=== PATIENT | female | born 1955 | race Caucasian/White ===

== ENCOUNTER 2016-09-28 11:28 | Emergency (ER) | payer OTHER ==
[~2016-09-28] VITALS: Ht 162.6 cm; Wt 92.7 kg
[~2016-09-28 11:28] MED LIST: ADVAIR 100/501 DISK; ADVAIR 100/501 DISK IH; ATIVAN1 MG PO; AVANDIA2 MG PO; BUSPAR10 M1; BUSPAR10 M1 PO; BUSPAR15 MG PO; CENTRAL-VITE S1 EAC2 PO; CLARITIN10 M3 PO; DEPAKOTE ER (E250 MG; DEPAKOTE ER (E500 MG PO; DEPAKOTE ER250 MG PO; DEPAKOTE ER500 MG PO; DEPAKOTE250 MG PO; DEPAKOTE500 MG PO; DITROPAN XL10 MG PO; DIVALPROEX SOD250 MG PO; ENABLEX15 MG PO; FLEXERIL10 MG PO; FOLIC ACID1 MG; FOLIC ACID1 MG PO; GABAPENTIN300 M1 PO; GABAPENTIN300 MG PO; GLIPIZIDE ER2.5 M1 PO; GLIPIZIDE ER2.5 MG PO; GLIPIZIDE5 M1 PO; GLIPIZIDE5 MG PO; GLUCOTROL XL10 MG PO; HUMALOG100 UNIT/1 SC; HYDROCODON-ACE1 EAC9 PO; Habitrol,Nicoderm CQ TD; INDERAL10 MG; INDERAL10 MG PO; LANTUS 10100 UNITS/ SC; LANTUS 3 M100 UNITS1 SC; LEVOTHROID,SY0.15 MG PO; LIBRIUM25 MG PO; LISINOPRIL20 MG PO; LITHIUM CARBON150 MG PO; LITHIUM CARBON300 M1 PO; LITHIUM CARBON300 MG PO; LITHIUM CARBON450 MG PO; LOFIBRA54 MG PO; LORATADINE10 M2 PO; LOW DOSE ASPIRI81 M1 PO; MELADOX3 MG; MELADOX3 MG PO; METAMUCIL MULT425 GM PO; METAMUCIL PACKE1 PKT PO; METHOCARBAMOL500 MG PO; MIRALAX255 GM PO; MOBIC15 MG PO; MOBIC7.5 MG PO; NABUMETONE500 MG PO; NEURONTIN300 MG; NEURONTIN300 MG PO; NICOTINE PATCH1 EAC2 TD; OXYBUTYNIN CHLO10 MG PO; PREMPRO 0.621 TABLET; PREMPRO 0.625-1 EACH PO; PRINIVIL20 MG PO; PROPOXYPHEN-AP1 EAC2 PO; RANITIDINE HCL150 M1; RANITIDINE HCL150 MG PO; SENNA S TABLET1 EACH PO; SEROQUEL XR300 MG PO; SEROQUEL300 MG PO; ST. JOSEPH ASPI81 MG PO; SYNTHROID150 MCG PO; THIAMINE HCL100 MG PO; TRAMADOL HCL50 MG; TRILIPIX135 MG; TRILIPIX135 MG PO; VENTOLIN HFA18 GM IH; VERTICALM25 MG PO; VITAMIN D50000 UNI1 PO; VYTORIN 10-201 EACH PO; VYTORIN 10/21 TABLET; VYTORIN 10/21 TABLET PO; ZANTAC150 M1 PO; ZANTAC150 MG PO; ZESTRIL,PRINIVI20 MG; ZESTRIL,PRINIVI20 MG PO; ZESTRIL20 MG PO; ZOFRAN ODT4 MG PO
[2016-09-28 11:38] VITALS: BP 130/64
[2016-09-28] MEDS ORDERED: FLEXERIL5 MG PO (12:47)
[2016-09-28] MEDS ORDERED: MOTRIN600 MG PO (12:47)
== END 2016-09-28 13:02 | disposition home or self-care (01) ==
LOC: EME 11:28
DX: M54.2 Cervicalgia (principal); R51 Headache; M54.5 Low back pain; G89.29 Other chronic pain; I10 Essential (primary) hypertension; E03.9 Hypothyroidism, unspecified; E78.5 Hyperlipidemia, unspecified; E11.9 Type 2 diabetes mellitus without complications; Z79.4 Long term (current) use of insulin; F17.200 Nicotine dependence, unspecified, uncomplicated
CPT/HCPCS: 99281; 99284

== ENCOUNTER 2017-02-27 17:31 | Emergency (ER) | payer OTHER ==
[~2017-02-27] VITALS: Ht 162.6 cm; Wt 94.7 kg
[~2017-02-27 17:31] MED LIST changes: +FLEXERIL5 MG PO; +MOTRIN600 MG PO
[2017-02-27 17:37] VITALS: BP 122/81
[2017-02-27 18:09] LABS: HEMATOCRIT 35.5 % (36.0-46.0); MCH 31.1 PG (29.0-34.0); MCHC 32.7 G/DL (30.0-36.0); MCV 95.2 FL (83-99); MEAN PLAT.VOLUME 11.7 uM^3 (9.5-12.4); PLATELET COUNT 221 K/uL (156-360); RBC DIS.WIDTH-CV 14.2 % (11.8-14.6); RBC DIS.WIDTH-SD 47.8 % (39-53); RED BLOOD COUNT 3.73 M/uL (3.80-5.20); WHITE BLOOD COUNT 7.6 K/uL (4.1-10.2)
[2017-02-27 18:21] LABS: CHLORIDE 99 mEq/L (99-109); SODIUM 135 mEq/L (136-147)
[2017-02-27 18:23] LABS: GLUCOSE 240 mg/dL (70-99)
[2017-02-27 18:24] LABS: ANION GAP 10 MEQ/L (2-14)
[2017-02-27 18:26] LABS: SERUM ETHYL ALCOHOL < 10 mg/dL
[2017-02-27 18:27] LABS: GFR ESTIMATE (CALCULATED) 35 mL/min/
[2017-02-27 18:28] LABS: UREA NITROGEN (BUN) 38 mg/dL (9-23)
[2017-02-27 21:27] LABS: AMPHETAMINE NEGATIVE (500 ng/mL); BARBITURATES NEGATIVE (200 ng/mL); BENZODIAZEPINES NEGATIVE (150 ng/mL); COCAINE NEGATIVE (150 ng/mL); INTERNAL CONTROLS VALID? YES; METHADONE NEGATIVE (200 ng/mL); METHAMPHETAMINE NEGATIVE (500 ng/mL); OPIATES (MORPHINE) NEGATIVE (100 ng/mL); OXYCODONE NEGATIVE (100 ng/mL); PHENCYCLIDINE NEGATIVE (25 ng/mL); PROPOXYPHENE NEGATIVE (300 ng/mL); THC CANNABINOIDS NEGATIVE (50 ng/mL); TRICYCLIC ANTIDEPRESSANTS NEGATIVE (300 ng/mL)
[2017-02-28] MEDS ORDERED: KEFLEX500 MG PO (14:35)
== END 2017-02-27 20:40 | disposition left against medical advice (07) ==
LOC: EME 17:31
DX: Z04.8 Encounter for examination and observation for other specified reasons (principal); Z53.21 Procedure and treatment not carried out due to patient leaving prior to being seen by health care provider
CPT/HCPCS: 80048; 85027; G0480

== ENCOUNTER 2017-02-28 12:36 | Emergency (ER) | payer OTHER ==
[~2017-02-28] VITALS: Ht 170.2 cm; Wt 95.4 kg
[2017-02-28 13:06] VITALS: BP 130/88
[2017-02-28 13:42] LABS: EOSINOPHIL COUNT 0.2 K/uL (0-0.3); HEMATOCRIT 37.7 % (36.0-46.0); IMMATURE GRANULOCYTE (%) 0.4 % (0.0-0.7); INSTRUMENT ABS NEUTROPHIL CT 4.7 K/uL; LYMPHOCYTE COUNT 1.5 K/uL (1.0-2.8); MCH 30.8 PG (29.0-34.0); MCHC 31.8 G/DL (30.0-36.0); MCV 96.7 FL (83-99); MEAN PLAT.VOLUME 11.2 uM^3 (9.5-12.4); MONOCYTE (%) 13.7 % (3-12); NEUTROPHIL COUNT 4.7 K/uL (1.8-6.4); PLATELET COUNT 205 K/uL (156-360); RBC DIS.WIDTH-CV 14.3 % (11.8-14.6); RBC DIS.WIDTH-SD 48.8 % (39-53); WHITE BLOOD COUNT 7.4 K/uL (4.1-10.2)
[2017-02-28 13:51] LABS: CHLORIDE 103 mEq/L (99-109); POTASSIUM 5.3 mEq/L (3.7-5.4); SODIUM 137 mEq/L (136-147)
[2017-02-28 13:52] LABS: GLUCOSE 241 mg/dL (70-99)
[2017-02-28 13:54] LABS: ANION GAP 8 MEQ/L (2-14)
[2017-02-28 13:55] LABS: SERUM ETHYL ALCOHOL < 10 mg/dL
[2017-02-28 13:56] LABS: GFR ESTIMATE (CALCULATED) 31 mL/min/
[2017-02-28 13:57] LABS: UREA NITROGEN (BUN) 44 mg/dL (9-23)
[2017-02-28] MEDS ORDERED: KEFLEX500 MG PO (14:35)
== END 2017-02-28 14:59 | disposition home or self-care (01) ==
LOC: EME 12:36
PROVIDERS: Emergency Medicine
DX: F32.9 Major depressive disorder, single episode, unspecified (principal); L03.115 Cellulitis of right lower limb; F25.1 Schizoaffective disorder, depressive type; F10.10 Alcohol abuse, uncomplicated; F17.200 Nicotine dependence, unspecified, uncomplicated; E11.9 Type 2 diabetes mellitus without complications; E78.5 Hyperlipidemia, unspecified; I10 Essential (primary) hypertension; J44.9 Chronic obstructive pulmonary disease, unspecified; K21.9 Gastro-esophageal reflux disease without esophagitis; Z79.4 Long term (current) use of insulin
CPT/HCPCS: 80048; 81003; 85025; 90839; 99281; 99283; G0480

== ENCOUNTER 2017-03-19 18:56 | Emergency (ER) | payer OTHER ==
[~2017-03-19] VITALS: Ht 167.6 cm; Wt 90.3 kg
[~2017-03-19 18:56] MED LIST changes: +KEFLEX500 MG PO
[2017-03-19 20:17] LABS: ADD MIUA? YES; BILIRUBIN NEGATIVE; BLOOD NEGATIVE; COLOR COLORLESS ((YELLOW)); GLUCOSE (STRIP) >=500; KETONES NEGATIVE; LEUKOCYTES MODERATE; NITRITE NEGATIVE; PROTEIN (STRIP) NEGATIVE; SPECIFIC GRAVITY 1.006 (1.000-1.030); UROBILINOGEN 0.2 MG/DL (0.2-1.0)
[2017-03-19 20:24] LABS: AMPHETAMINE NEGATIVE (500 ng/mL); BARBITURATES NEGATIVE (200 ng/mL); BENZODIAZEPINES NEGATIVE (150 ng/mL); COCAINE NEGATIVE (150 ng/mL); INTERNAL CONTROLS VALID? YES; METHADONE NEGATIVE (200 ng/mL); METHAMPHETAMINE NEGATIVE (500 ng/mL); OPIATES (MORPHINE) NEGATIVE (100 ng/mL); OXYCODONE NEGATIVE (100 ng/mL); PHENCYCLIDINE NEGATIVE (25 ng/mL); PROPOXYPHENE NEGATIVE (300 ng/mL); THC CANNABINOIDS NEGATIVE (50 ng/mL); TRICYCLIC ANTIDEPRESSANTS PRESUMPTIVE POSITIVE (300 ng/mL)
[2017-03-19 20:30] LABS: HEMATOCRIT 32.5 % (36.0-46.0); MCH 31.3 PG (29.0-34.0); MCHC 32.6 G/DL (30.0-36.0); MCV 95.9 FL (83-99); MEAN PLAT.VOLUME 11.8 uM^3 (9.5-12.4); PLATELET COUNT 179 K/uL (156-360); RBC DIS.WIDTH-CV 14.2 % (11.8-14.6); RBC DIS.WIDTH-SD 49.2 % (39-53); RED BLOOD COUNT 3.39 M/uL (3.80-5.20)
[2017-03-19 20:31] LABS: BACTERIA RARE /HPF; EPITHELIAL CELLS RARE /HPF; MUCUS TRACE /LPF; RED BLOOD CELLS 0-5 /HPF (0-5); WHITE BLOOD CELLS CLUMP RARE /HPF (0-5)
[2017-03-19 20:49] LABS: CHLORIDE 102 mEq/L (99-109); POTASSIUM 4.2 mEq/L (3.7-5.4); SODIUM 137 mEq/L (136-147)
[2017-03-19 20:52] LABS: GLUCOSE 383 mg/dL (70-99)
[2017-03-19 20:53] LABS: ANION GAP 11 MEQ/L (2-14); TOTAL BILIRUBIN 0.3 mg/dL (0.0-1.0)
[2017-03-19 20:54] LABS: SERUM ETHYL ALCOHOL 113 mg/dL
[2017-03-19 20:55] LABS: ALKALINE PHOSPHATASE 68 IU/L (3-129); GFR ESTIMATE (CALCULATED) 38 mL/min/
[2017-03-19 20:56] LABS: UREA NITROGEN (BUN) 24 mg/dL (9-23)
[2017-03-19 21:50] VITALS: BP 132/73
== END 2017-03-19 22:15 | disposition home or self-care (01) ==
LOC: EME → EDBD 18:56 → EME 22:15
PROVIDERS: Emergency Medicine
DX: F10.129 Alcohol abuse with intoxication, unspecified (principal); F25.1 Schizoaffective disorder, depressive type; Y90.5 Blood alcohol level of 100-119 mg/100 ml; E11.9 Type 2 diabetes mellitus without complications; E78.5 Hyperlipidemia, unspecified; F32.9 Major depressive disorder, single episode, unspecified; I10 Essential (primary) hypertension; F60.3 Borderline personality disorder; K21.9 Gastro-esophageal reflux disease without esophagitis; F17.200 Nicotine dependence, unspecified, uncomplicated; Z79.4 Long term (current) use of insulin
CPT/HCPCS: 80053; 81003; 85027; 90839; 99281; 99284; G0480

== ENCOUNTER 2017-04-09 11:04 | Emergency (ER) | payer OTHER ==
[~2017-04-09] VITALS: Ht 162.6 cm; Wt 91.5 kg
[2017-04-09] MEDS ORDERED: ANTIVERT25 MG PO (12:36)
[2017-04-09 12:53] VITALS: BP 116/61
== END 2017-04-09 12:54 | disposition home or self-care (01) ==
LOC: EME 11:04
DX: H81.399 Other peripheral vertigo, unspecified ear (principal); E11.65 Type 2 diabetes mellitus with hyperglycemia; Z79.4 Long term (current) use of insulin; E78.5 Hyperlipidemia, unspecified; K21.9 Gastro-esophageal reflux disease without esophagitis; J44.9 Chronic obstructive pulmonary disease, unspecified; I10 Essential (primary) hypertension; F32.9 Major depressive disorder, single episode, unspecified; E03.9 Hypothyroidism, unspecified; F60.3 Borderline personality disorder; F17.200 Nicotine dependence, unspecified, uncomplicated; F10.10 Alcohol abuse, uncomplicated
CPT/HCPCS: 99281; 99283

== ENCOUNTER 2017-05-27 16:46 | Emergency (ER) | payer OTHER ==
[~2017-05-27] VITALS: Ht 170.2 cm; Wt 95.6 kg
[~2017-05-27 16:46] MED LIST changes: +ANTIVERT25 MG PO
[2017-05-27] MEDS ORDERED: INDOCIN25 MG PO (18:22)
[2017-05-27] MEDS ORDERED: FLEXERIL5 MG PO (18:22)
[2017-05-27] MEDS ORDERED: LIDODERM 5% P1 PATCH TD (18:22)
[2017-05-27 18:37] VITALS: BP 135/80
== END 2017-05-27 18:38 | disposition home or self-care (01) ==
LOC: EME 16:46 → RME 16:46
DX: M50.30 Other cervical disc degeneration, unspecified cervical region (principal); M51.34 Other intervertebral disc degeneration, thoracic region; M62.838 Other muscle spasm; I10 Essential (primary) hypertension; E11.9 Type 2 diabetes mellitus without complications; Z79.4 Long term (current) use of insulin; F17.200 Nicotine dependence, unspecified, uncomplicated
CPT/HCPCS: 99281; 99282; J1885

== ENCOUNTER 2017-08-04 13:16 | Emergency (ER) | payer OTHER ==
[~2017-08-04] VITALS: Ht 162.6 cm; Wt 94.7 kg
[~2017-08-04 13:16] MED LIST changes: +INDOCIN25 MG PO; +LIDODERM 5% P1 PATCH TD
[2017-08-04 14:27] LABS: HEMATOCRIT 33.9 % (36.0-46.0); MCH 30.9 PG (29.0-34.0); MCHC 31.6 G/DL (30.0-36.0); MEAN PLAT.VOLUME 11.7 uM^3 (9.5-12.4); PLATELET COUNT 218 K/uL (156-360); RBC DIS.WIDTH-CV 13.5 % (11.8-14.6); RBC DIS.WIDTH-SD 49.4 % (39-53); RED BLOOD COUNT 3.46 M/uL (3.80-5.20); WHITE BLOOD COUNT 8.4 K/uL (4.1-10.2)
[2017-08-04 14:30] LABS: ADD MIUA? YES; BILIRUBIN NEGATIVE; BLOOD NEGATIVE; COLOR YELLOW ((YELLOW)); GLUCOSE (STRIP) 150; KETONES NEGATIVE; LEUKOCYTES TRACE; NITRITE NEGATIVE; PROTEIN (STRIP) NEGATIVE; SPECIFIC GRAVITY 1.017 (1.000-1.030); UROBILINOGEN 0.2 MG/DL (0.2-1.0)
[2017-08-04 14:34] LABS: CHLORIDE 108 mEq/L (99-109); POTASSIUM 5.1 mEq/L (3.7-5.4); SODIUM 138 mEq/L (136-147)
[2017-08-04 14:34] LABS: BACTERIA NONE SEEN /HPF; EPITHELIAL CELLS NONE SEEN /HPF; HYALINE CASTS 0-5 /LPF; MUCUS TRACE /LPF; RED BLOOD CELLS 0-5 /HPF (0-5); UCUL ADDED? NO; WHITE BLOOD CELLS 0-5 /HPF (0-5)
[2017-08-04 14:37] LABS: GLUCOSE 268 mg/dL (70-99)
[2017-08-04 14:38] LABS: ANION GAP 7 MEQ/L (2-14)
[2017-08-04 14:39] LABS: TOTAL BILIRUBIN 0.3 mg/dL (0.0-1.0)
[2017-08-04 14:40] LABS: ALKALINE PHOSPHATASE 64 IU/L (3-129); GFR ESTIMATE (CALCULATED) 35 mL/min/
[2017-08-04 14:41] LABS: UREA NITROGEN (BUN) 36 mg/dL (9-23)
[2017-08-04 14:45] LABS: LIPASE 26 U/L (1.0-51.0)
[2017-08-04] MEDS ORDERED: ZOFRAN ODT4 MG PO (15:14)
[2017-08-04] MEDS ORDERED: COLACE100 MG PO (15:14)
[2017-08-04 15:50] VITALS: BP 136/60
== END 2017-08-04 15:51 | disposition home or self-care (01) ==
LOC: EME 13:16
DX: R10.9 Unspecified abdominal pain (principal); K59.00 Constipation, unspecified; D64.9 Anemia, unspecified; E11.65 Type 2 diabetes mellitus with hyperglycemia; K21.9 Gastro-esophageal reflux disease without esophagitis; J44.9 Chronic obstructive pulmonary disease, unspecified; I10 Essential (primary) hypertension; E78.5 Hyperlipidemia, unspecified; E03.9 Hypothyroidism, unspecified; F32.9 Major depressive disorder, single episode, unspecified; F31.9 Bipolar disorder, unspecified; F17.210 Nicotine dependence, cigarettes, uncomplicated; Z79.4 Long term (current) use of insulin; Z86.73 Personal history of transient ischemic attack (TIA), and cerebral infarction without residual deficits; Z88.8 Allergy status to other drugs, medicaments and biological substances
CPT/HCPCS: 74020; 80053; 81003; 83690; 85027; 99281; 99284

== ENCOUNTER 2017-09-11 21:44 | Emergency (ER) | payer OTHER ==
[~2017-09-11] VITALS: Ht 167.6 cm; Wt 96.6 kg
[~2017-09-11 21:44] MED LIST changes: +COLACE100 MG PO
[2017-09-11 23:06] LABS: HEMOGLOBIN 10.5 G/DL (11.9-15.5); MCH 31.9 PG (29.0-34.0); MCHC 32.8 G/DL (30.0-36.0); MCV 97.3 FL (83-99); PLATELET COUNT 184 K/uL (156-360); RBC DIS.WIDTH-CV 13.8 % (11.8-14.6); RBC DIS.WIDTH-SD 49.4 % (39-53); RED BLOOD COUNT 3.29 M/uL (3.80-5.20); WHITE BLOOD COUNT 8.9 K/uL (4.1-10.2)
[2017-09-11 23:10] LABS: APPEARANCE CLEAR ((CLEAR)); BILIRUBIN NEGATIVE; BLOOD NEGATIVE; COLOR YELLOW ((YELLOW)); GLUCOSE (STRIP) NEGATIVE; KETONES NEGATIVE; LEUKOCYTES MODERATE; NITRITE NEGATIVE; PROTEIN (STRIP) NEGATIVE; SPECIFIC GRAVITY 1.013 (1.000-1.030)
[2017-09-11 23:12] LABS: ALBUMIN 3.8 g/dL (3.2-4.8); CHLORIDE 103 mEq/L (99-109); POTASSIUM 5.7 mEq/L (3.7-5.4); SODIUM 139 mEq/L (136-147)
[2017-09-11 23:14] LABS: GLUCOSE 126 mg/dL (70-99); TOTAL PROTEIN 6.7 g/dL (6.4-8.3)
[2017-09-11 23:14] LABS: BACTERIA RARE /HPF; EPITHELIAL CELLS RARE /HPF; MUCUS NONE SEEN /LPF; RED BLOOD CELLS 0-5 /HPF (0-5); UCUL ADDED? YES; WHITE BLOOD CELLS 30-40 /HPF (0-5)
[2017-09-11 23:16] LABS: TOTAL BILIRUBIN 0.2 mg/dL (0.0-1.0)
[2017-09-11 23:18] LABS: ALKALINE PHOSPHATASE 60 IU/L (3-129); CREATININE 1.4 mg/dL (0.6-1.3); GFR ESTIMATE (CALCULATED) 41 mL/min/
[2017-09-11 23:19] LABS: UREA NITROGEN (BUN) 31 mg/dL (9-23)
[2017-09-11 23:20] LABS: AST (GOT) 12 IU/L (2-34)
[2017-09-11 23:21] LABS: ALT (GPT) 10 IU/L (3-49); LIPASE 32 U/L (1.0-51.0)
[2017-09-12] MEDS ORDERED: BACTRIM,SEPT1 TABLET PO (01:27)
[2017-09-12] MEDS ORDERED: DULCOLAX5 MG PO (01:27)
[2017-09-12 01:40] VITALS: BP 148/75
== END 2017-09-12 01:41 | disposition home or self-care (01) ==
LOC: EME 21:44
PROVIDERS: Emergency Medicine
DX: N30.00 Acute cystitis without hematuria (principal); R10.84 Generalized abdominal pain; K59.09 Other constipation; I12.9 Hypertensive chronic kidney disease with stage 1 through stage 4 chronic kidney disease, or unspecified chronic kidney disease; E11.22 Type 2 diabetes mellitus with diabetic chronic kidney disease; N18.9 Chronic kidney disease, unspecified; D64.9 Anemia, unspecified; R20.0 Anesthesia of skin; E03.9 Hypothyroidism, unspecified; Z79.4 Long term (current) use of insulin; F17.200 Nicotine dependence, unspecified, uncomplicated
CPT/HCPCS: 74176; 80053; 81003; 83605; 83690; 85027; 87086; 99281; 99285; J2405; J7030; S0028

== ENCOUNTER 2017-09-13 09:53 | Emergency (ER) | payer OTHER ==
[~2017-09-13] VITALS: Ht 167.6 cm; Wt 96.1 kg
[~2017-09-13 09:53] MED LIST changes: +BACTRIM,SEPT1 TABLET PO; +DULCOLAX5 MG PO
[2017-09-13 10:55] LABS: HEMATOCRIT 35.8 % (36.0-46.0); HEMOGLOBIN 11.4 G/DL (11.9-15.5); MCH 31.7 PG (29.0-34.0); MCHC 31.8 G/DL (30.0-36.0); MCV 99.4 FL (83-99); PLATELET COUNT 235 K/uL (156-360); RBC DIS.WIDTH-CV 13.8 % (11.8-14.6); RBC DIS.WIDTH-SD 50.8 % (39-53); WHITE BLOOD COUNT 9.8 K/uL (4.1-10.2)
[2017-09-13 11:04] LABS: ALBUMIN 4.3 g/dL (3.2-4.8); CHLORIDE 104 mEq/L (99-109); POTASSIUM 5.8 mEq/L (3.7-5.4); SODIUM 136 mEq/L (136-147)
[2017-09-13 11:07] LABS: TOTAL PROTEIN 7.7 g/dL (6.4-8.3)
[2017-09-13 11:10] LABS: ALKALINE PHOSPHATASE 63 IU/L (3-129); CREATININE 1.5 mg/dL (0.6-1.3); GFR ESTIMATE (CALCULATED) 38 mL/min/; GLUCOSE 68 mg/dL (70-99); TOTAL BILIRUBIN 0.3 mg/dL (0.0-1.0)
[2017-09-13 11:11] LABS: UREA NITROGEN (BUN) 25 mg/dL (9-23)
[2017-09-13 11:12] LABS: AST (GOT) 20 IU/L (2-34)
[2017-09-13 11:13] LABS: ALT (GPT) 13 IU/L (3-49)
[2017-09-13 11:57] LABS: APPEARANCE CLEAR ((CLEAR)); BILIRUBIN NEGATIVE; BLOOD NEGATIVE; COLOR YELLOW ((YELLOW)); GLUCOSE (STRIP) NEGATIVE; KETONES NEGATIVE; LEUKOCYTES TRACE; NITRITE NEGATIVE; PROTEIN (STRIP) NEGATIVE; SPECIFIC GRAVITY 1.012 (1.000-1.030); UROBILINOGEN 0.2 MG/DL (0.2-1.0)
[2017-09-13 12:02] LABS: BACTERIA RARE /HPF; EPITHELIAL CELLS RARE /HPF; HYALINE CASTS 0-5 /LPF; MUCUS NONE SEEN /LPF; RED BLOOD CELLS 0-5 /HPF (0-5); UCUL ADDED? NO; WHITE BLOOD CELLS 0-5 /HPF (0-5)
[2017-09-13 12:55] LABS: LIPASE 23 U/L (1.0-51.0)
[2017-09-13 12:59] LABS: TROP-I INTERPRETATION NEGATIVE; TROPONIN-I < 0.01 ng/mL (0.0-0.30)
[2017-09-13 15:29] VITALS: BP 134/76
== END 2017-09-13 15:30 | disposition home or self-care (01) ==
LOC: EME 09:53
DX: K59.00 Constipation, unspecified (principal); J44.9 Chronic obstructive pulmonary disease, unspecified; E11.9 Type 2 diabetes mellitus without complications; Z79.4 Long term (current) use of insulin; E78.5 Hyperlipidemia, unspecified; E03.9 Hypothyroidism, unspecified; I10 Essential (primary) hypertension; F17.200 Nicotine dependence, unspecified, uncomplicated; K21.9 Gastro-esophageal reflux disease without esophagitis; F32.9 Major depressive disorder, single episode, unspecified
CPT/HCPCS: 74000; 80053; 81003; 83690; 84484; 85027; 93005; 99281; 99284

== ENCOUNTER 2018-01-15 18:32 | Emergency (ER) | payer OTHER ==
[~2018-01-15] VITALS: Ht 170.2 cm; Wt 92.5 kg
[2018-01-15 19:19] LABS: HEMATOCRIT 35.4 % (36.0-46.0); HEMOGLOBIN 11.6 G/DL (11.9-15.5); MCH 31.9 PG (29.0-34.0); MCHC 32.8 G/DL (30.0-36.0); MCV 97.3 FL (83-99); RBC DIS.WIDTH-CV 13.9 % (11.8-14.6); RBC DIS.WIDTH-SD 49.7 % (39-53); RED BLOOD COUNT 3.64 M/uL (3.80-5.20); WHITE BLOOD COUNT 7.2 K/uL (4.1-10.2)
[2018-01-15 19:26] LABS: CHLORIDE 107 mEq/L (99-109); POTASSIUM 5.1 mEq/L (3.7-5.4); SODIUM 143 mEq/L (136-147)
[2018-01-15 19:28] LABS: GLUCOSE 150 mg/dL (70-99)
[2018-01-15 19:32] LABS: CREATININE 1.6 mg/dL (0.6-1.3); GFR ESTIMATE (CALCULATED) 35 mL/min/; UREA NITROGEN (BUN) 35 mg/dL (9-23)
[2018-01-15 20:34] LABS: HEMATOLOGY COMMENT 1 SN; PLAT.SUFFICIENCY ADEQUATE; PLATELET COUNT 155 K/uL (156-360)
[2018-01-15 20:35] LABS: TROP-I INTERPRETATION NEGATIVE; TROPONIN-I < 0.01 ng/mL (0.0-0.30)
[2018-01-15 21:38] VITALS: BP 104/50
[2018-01-15 21:52] LABS: APPEARANCE CLEAR ((CLEAR)); BILIRUBIN NEGATIVE; BLOOD NEGATIVE; COLOR YELLOW ((YELLOW)); GLUCOSE (STRIP) NEGATIVE; KETONES NEGATIVE; LEUKOCYTES MODERATE; NITRITE NEGATIVE; PROTEIN (STRIP) NEGATIVE; SPECIFIC GRAVITY 1.013 (1.000-1.030)
[2018-01-15 22:00] LABS: BACTERIA NONE SEEN /HPF; EPITHELIAL CELLS RARE /HPF; MUCUS TRACE /LPF; RED BLOOD CELLS 0-5 /HPF (0-5)
== END 2018-01-15 21:40 | disposition left against medical advice (07) ==
LOC: EME 18:32
PROVIDERS: Physician Assistant
DX: R47.1 Dysarthria and anarthria (principal); R41.0 Disorientation, unspecified; R51 Headache; M54.2 Cervicalgia; I10 Essential (primary) hypertension; E03.9 Hypothyroidism, unspecified; E11.9 Type 2 diabetes mellitus without complications; Z79.4 Long term (current) use of insulin; Z86.73 Personal history of transient ischemic attack (TIA), and cerebral infarction without residual deficits; Z91.81 History of falling; F17.200 Nicotine dependence, unspecified, uncomplicated
CPT/HCPCS: 70450; 71046; 80048; 80178; 81003; 84484; 85027; 93005; 99281; 99285

== ENCOUNTER 2018-01-23 12:05 | Emergency (ER) | payer OTHER ==
[~2018-01-23] VITALS: Ht 170.2 cm; Wt 91.8 kg
[2018-01-23 12:39] LABS: HEMATOCRIT 32.8 % (36.0-46.0); HEMOGLOBIN 10.8 G/DL (11.9-15.5); MCH 31.7 PG (29.0-34.0); MCHC 32.9 G/DL (30.0-36.0); MCV 96.2 FL (83-99); RBC DIS.WIDTH-CV 13.6 % (11.8-14.6); RBC DIS.WIDTH-SD 48.6 % (39-53); RED BLOOD COUNT 3.41 M/uL (3.80-5.20)
[2018-01-23 12:49] LABS: CHLORIDE 103 mEq/L (99-109); POTASSIUM 5.2 mEq/L (3.7-5.4); SODIUM 137 mEq/L (136-147)
[2018-01-23 12:52] LABS: GLUCOSE 162 mg/dL (70-99); TOTAL PROTEIN 6.4 g/dL (6.4-8.3)
[2018-01-23 12:54] LABS: TOTAL BILIRUBIN 0.2 mg/dL (0.0-1.0)
[2018-01-23 12:55] LABS: ALKALINE PHOSPHATASE 56 IU/L (3-129); CREATININE 1.4 mg/dL (0.6-1.3); GFR ESTIMATE (CALCULATED) 41 mL/min/
[2018-01-23 12:56] LABS: UREA NITROGEN (BUN) 28 mg/dL (9-23)
[2018-01-23 12:57] LABS: AST (GOT) 13 IU/L (2-34)
[2018-01-23 12:58] LABS: ALT (GPT) 12 IU/L (3-49)
[2018-01-23 12:59] LABS: LIPASE 36 U/L (1.0-51.0)
[2018-01-23 13:13] LABS: PLAT.SUFFICIENCY ADEQUATE; PLATELET COUNT 173 K/uL (156-360)
[2018-01-23 14:18] LABS: APPEARANCE CLEAR ((CLEAR)); BILIRUBIN NEGATIVE; BLOOD NEGATIVE; COLOR STRAW ((YELLOW)); GLUCOSE (STRIP) NEGATIVE; KETONES NEGATIVE; LEUKOCYTES LARGE; NITRITE NEGATIVE; PROTEIN (STRIP) NEGATIVE; SPECIFIC GRAVITY 1.009 (1.000-1.030); UROBILINOGEN 0.2 MG/DL (0.2-1.0)
[2018-01-23 14:31] LABS: BACTERIA NONE SEEN /HPF; EPITHELIAL CELLS RARE /HPF; MUCUS NONE SEEN /LPF; RED BLOOD CELLS 0-5 /HPF (0-5); UCUL ADDED? YES; WHITE BLOOD CELLS 30-40 /HPF (0-5)
[2018-01-23] MEDS ORDERED: CEFTIN250 MG PO (15:00)
[2018-01-23 15:50] VITALS: BP 138/73
== END 2018-01-23 15:52 | disposition home or self-care (01) ==
LOC: EME 12:05
PROVIDERS: Emergency Medicine
DX: N39.0 Urinary tract infection, site not specified (principal); K57.30 Diverticulosis of large intestine without perforation or abscess without bleeding; K59.00 Constipation, unspecified; E11.9 Type 2 diabetes mellitus without complications; K21.9 Gastro-esophageal reflux disease without esophagitis; J44.9 Chronic obstructive pulmonary disease, unspecified; I10 Essential (primary) hypertension; E78.5 Hyperlipidemia, unspecified; E03.9 Hypothyroidism, unspecified; F60.3 Borderline personality disorder; F32.9 Major depressive disorder, single episode, unspecified; F31.9 Bipolar disorder, unspecified; F17.200 Nicotine dependence, unspecified, uncomplicated; Z79.4 Long term (current) use of insulin; Z88.8 Allergy status to other drugs, medicaments and biological substances
CPT/HCPCS: 74176; 80053; 81003; 83690; 85027; 87086; 93005; 99281; 99285; J2405; J7030

== ENCOUNTER 2018-02-19 16:55 | Emergency (ER) | payer OTHER ==
[~2018-02-19] VITALS: Ht 162.6 cm; Wt 91.8 kg
[~2018-02-19 16:55] MED LIST changes: +CEFTIN250 MG PO
[2018-02-19 17:21] VITALS: BP 143/92
== END 2018-02-19 17:44 | disposition left against medical advice (07) ==
LOC: EME 16:55
DX: T78.40XA Allergy, unspecified, initial encounter (principal); Z53.21 Procedure and treatment not carried out due to patient leaving prior to being seen by health care provider

== ENCOUNTER 2018-03-07 14:26 | Emergency (ER) | payer OTHER ==
[~2018-03-07] VITALS: Ht 170.2 cm; Wt 88.2 kg
[2018-03-07 15:02] LABS: BASOPHIL (%) 0.6 % (0-1); BASOPHIL COUNT 0.1 K/uL (0-0.1); EOSINOPHIL COUNT 0.2 K/uL (0-0.3); HEMATOCRIT 35.3 % (36.0-46.0); HEMOGLOBIN 11.6 G/DL (11.9-15.5); IMMATURE GRANULOCYTE (%) 0.8 % (0.0-0.7); LYMPHOCYTE (%) 21.6 % (15-42); LYMPHOCYTE COUNT 1.7 K/uL (1.0-2.8); MCH 31.7 PG (29.0-34.0); MCHC 32.9 G/DL (30.0-36.0); MCV 96.4 FL (83-99); MONOCYTE (%) 10.4 % (3-12); MONOCYTE COUNT 0.8 K/uL (0-0.8); NEUTROPHIL (%) 64.6 % (45-76); NEUTROPHIL COUNT 5.1 K/uL (1.8-6.4); PLATELET COUNT 172 K/uL (156-360); RBC DIS.WIDTH-CV 13.5 % (11.8-14.6); RBC DIS.WIDTH-SD 47.7 % (39-53); RED BLOOD COUNT 3.66 M/uL (3.80-5.20); WHITE BLOOD COUNT 7.9 K/uL (4.1-10.2)
[2018-03-07 15:11] LABS: CHLORIDE 105 mEq/L (99-109); POTASSIUM 5.3 mEq/L (3.7-5.4); SODIUM 137 mEq/L (136-147)
[2018-03-07 15:13] LABS: GLUCOSE 154 mg/dL (70-99)
[2018-03-07 15:16] LABS: SERUM ETHYL ALCOHOL < 10 mg/dL
[2018-03-07 15:17] LABS: CREATININE 1.3 mg/dL (0.6-1.3); GFR ESTIMATE (CALCULATED) 44 mL/min/
[2018-03-07 15:18] LABS: UREA NITROGEN (BUN) 27 mg/dL (9-23)
[2018-03-07 16:09] VITALS: BP 138/70
== END 2018-03-07 16:27 | disposition home or self-care (01) ==
LOC: EME 14:26
PROVIDERS: Emergency Medicine
DX: F41.9 Anxiety disorder, unspecified (principal); E11.9 Type 2 diabetes mellitus without complications; Z76.0 Encounter for issue of repeat prescription; Z79.4 Long term (current) use of insulin; F25.1 Schizoaffective disorder, depressive type; Z72.0 Tobacco use
CPT/HCPCS: 80048; 85025; 90839; 99281; 99283; G0480

== ENCOUNTER → 2018-03-25 | Day surgery (SDC) | payer OTHER ==
[~2018-03-25] VITALS: Ht 171.4 cm; Wt 88.0 kg
[~2018-03-25] MED LIST changes: +BASAGLAR K100 UNIT/1 SC; +VITAMIN D2000 UNI1 PO; +ZOCOR40 MG PO
== END | disposition home or self-care (01) ==
LOC: PAIN 10:33 → SDC 11:00 → PAIN 11:00
PROVIDERS: Anesthesiology Pain Medicine
DX: M47.812 Spondylosis without myelopathy or radiculopathy, cervical region (principal); M46.92 Unspecified inflammatory spondylopathy, cervical region; M79.1 Myalgia; F17.200 Nicotine dependence, unspecified, uncomplicated; Z88.8 Allergy status to other drugs, medicaments and biological substances
CPT/HCPCS: 82948; J1030; J2250; S0020

== ENCOUNTER 2018-04-12 04:10 | Emergency (ER) | payer OTHER ==
[~2018-04-12] VITALS: Ht 170.2 cm; Wt 88.4 kg
[~2018-04-12 04:10] MED LIST changes: +NEURONTIN100 MG PO; -NEURONTIN300 MG PO; +SEROQUEL200 MG PO
[2018-04-12] MEDS ORDERED: PERCOCET 5/31 TABLET PO (05:34)
[2018-04-12 06:33] VITALS: BP 141/76
== END 2018-04-12 06:36 | disposition home or self-care (01) ==
LOC: EME → EDBD 04:10 → EME 06:36
DX: S82.002A Unspecified fracture of left patella, initial encounter for closed fracture (principal); W01.0XXA Fall on same level from slipping, tripping and stumbling without subsequent striking against object, initial encounter; Y93.89 Activity, other specified; Y92.002 Bathroom of unspecified non-institutional (private) residence as the place of occurrence of the external cause; I10 Essential (primary) hypertension; K21.9 Gastro-esophageal reflux disease without esophagitis; E78.5 Hyperlipidemia, unspecified; E11.9 Type 2 diabetes mellitus without complications; J44.9 Chronic obstructive pulmonary disease, unspecified; E03.9 Hypothyroidism, unspecified; F32.9 Major depressive disorder, single episode, unspecified; F31.9 Bipolar disorder, unspecified; F17.200 Nicotine dependence, unspecified, uncomplicated; Z79.84 Long term (current) use of oral hypoglycemic drugs; Z88.8 Allergy status to other drugs, medicaments and biological substances
CPT/HCPCS: 73564; 99281; 99283

== ENCOUNTER 2018-04-14 10:27 | Inpatient (IN) | payer OTHER ==
[~2018-04-14] VITALS: Ht 170.2 cm; Wt 89.8 kg
[~2018-04-14 10:27] MED LIST changes: +PERCOCET 5/31 TABLET PO
[2018-04-14 10:45] LABS: HEMATOCRIT 34.2 % (36.0-46.0); HEMOGLOBIN 11.5 G/DL (11.9-15.5); MCH 32.4 PG (29.0-34.0); MCHC 33.6 G/DL (30.0-36.0); MCV 96.3 FL (83-99); PLATELET COUNT 181 K/uL (156-360); RBC DIS.WIDTH-CV 12.8 % (11.8-14.6); RBC DIS.WIDTH-SD 45.9 % (39-53); RED BLOOD COUNT 3.55 M/uL (3.80-5.20); WHITE BLOOD COUNT 17.1 K/uL (4.1-10.2)
[2018-04-14 10:53] LABS: CHLORIDE 103 mEq/L (99-109); SODIUM 138 mEq/L (136-147)
[2018-04-14 10:55] LABS: GLUCOSE 106 mg/dL (70-99)
[2018-04-14 10:59] LABS: CREATININE 2.5 mg/dL (0.6-1.3); GFR ESTIMATE (CALCULATED) 21 mL/min/
[2018-04-14 11:00] LABS: UREA NITROGEN (BUN) 55 mg/dL (9-23)
[2018-04-14 11:05] LABS: TROP-I INTERPRETATION NEGATIVE; TROPONIN-I < 0.01 ng/mL (0.0-0.30)
[2018-04-14 11:25] LABS: APPEARANCE TURBID ((CLEAR)); BILIRUBIN NEGATIVE; BLOOD MODERATE; COLOR AMBER ((YELLOW)); GLUCOSE (STRIP) NEGATIVE; KETONES NEGATIVE; LEUKOCYTES LARGE; NITRITE NEGATIVE; PROTEIN (STRIP) 100; SPECIFIC GRAVITY 1.014 (1.000-1.030); UROBILINOGEN 0.2 MG/DL (0.2-1.0)
[2018-04-14 11:51] LABS: UCUL ADDED? YES; WHITE BLOOD CELLS TNTC /HPF (0-5)
[2018-04-14] MEDS ORDERED: MELOXICAM15 MG PO (14:40)
[2018-04-14] MEDS ORDERED: MIRALAX119 GM PO (14:40)
[2018-04-14] MEDS ORDERED: LO-DOSE ASPIRIN81 M1 PO (14:41)
[2018-04-14 15:02] VITALS: BP 124/81
[2018-04-14] MEDS ORDERED: QUETIAPINE FUM300 MG PO (15:02)
[2018-04-14] MEDS ORDERED: HYDROCODON-ACE1 EAC7 PO (15:04)
[2018-04-14] MEDS ORDERED: SANCTURA20 MG PO (15:04)
[2018-04-14 19:55] VITALS: BP 134/63
[2018-04-14 21:02] LABS: HEMATOCRIT 35.3 % (36.0-46.0); HEMOGLOBIN 11.6 G/DL (11.9-15.5); MCH 32.3 PG (29.0-34.0); MCHC 32.9 G/DL (30.0-36.0); MCV 98.3 FL (83-99); PLATELET COUNT 185 K/uL (156-360); RBC DIS.WIDTH-CV 12.8 % (11.8-14.6); RBC DIS.WIDTH-SD 46.3 % (39-53); RED BLOOD COUNT 3.59 M/uL (3.80-5.20); WHITE BLOOD COUNT 15.5 K/uL (4.1-10.2)
[2018-04-14 21:21] LABS: CREATINE KINASE 569 IU/L (1-294); TOTAL CK 569 IU/L (1-294)
[2018-04-14 21:28] LABS: CKMB RELATIVE INDEX 1.2 (0.0-3.9)
[2018-04-14 22:13] LABS: ALBUMIN 3.5 G/DL (3.2-4.8); ALKALINE PHOSPHATASE 62 IU/L (3-129); ALT (GPT) 11 IU/L (3-49); AST (GOT) 23 IU/L (2-34); CHLORIDE 106 MEQ/L (99-109); CREATININE 1.8 MG/DL (0.6-1.3); GFR ESTIMATE (CALCULATED) 31 mL/min/; GLUCOSE 122 mg/dL (70-99); POTASSIUM 5.4 MEQ/L (3.7-5.4); SODIUM 138 MEQ/L (136-147); TOTAL BILIRUBIN 0.3 MG/DL (0.0-1.0); TOTAL PROTEIN 6.8 G/DL (6.4-8.3); UREA NITROGEN (BUN) 48 mg/dL (9-23)
[2018-04-15 00:08] VITALS: BP 136/65
[2018-04-15 06:38] LABS: ALBUMIN 2.9 G/DL (3.2-4.8); CHLORIDE 108 MEQ/L (99-109); CREATININE 1.7 MG/DL (0.6-1.3); GFR ESTIMATE (CALCULATED) 33 mL/min/; GLUCOSE 94 mg/dL (70-99); IRON 26 MCG/DL (35-150); PHOSPHORUS 4.2 mg/dL (2.5-4.9); POTASSIUM 4.8 MEQ/L (3.7-5.4); SODIUM 141 MEQ/L (136-147); TRANSFERRIN (TIBC) 208.3 mg/dL (215-380); TRANSFERRIN SATUR. 12 % (20-55); UREA NITROGEN (BUN) 45 mg/dL (9-23)
[2018-04-15 07:42] VITALS: BP 110/63
[2018-04-15 08:14] LABS: HEMATOCRIT 31.3 % (36.0-46.0); HEMOGLOBIN 10.1 G/DL (11.9-15.5); MCH 31.7 PG (29.0-34.0); MCHC 32.3 G/DL (30.0-36.0); MCV 98.1 FL (83-99); PLATELET COUNT 171 K/uL (156-360); RBC DIS.WIDTH-CV 12.7 % (11.8-14.6); RBC DIS.WIDTH-SD 46.1 % (39-53); RED BLOOD COUNT 3.19 M/uL (3.80-5.20); WHITE BLOOD COUNT 11.4 K/uL (4.1-10.2)
[2018-04-15 10:01] LABS: CREATINE KINASE 213 IU/L (1-294)
[2018-04-15 12:09] VITALS: BP 115/60
[2018-04-15 16:00] LABS: INTER. NORMALIZED RATIO 1.2
[2018-04-15 16:13] VITALS: BP 131/80
[2018-04-15 16:58] LABS: PTT 17.7 SEC (25-37)
[2018-04-15 19:19] VITALS: BP 116/62
[2018-04-15 23:59] VITALS: BP 105/51
[2018-04-16 03:41] VITALS: BP 89/50
[2018-04-16 04:47] VITALS: BP 96/53
[2018-04-16 05:35] LABS: HEMATOCRIT 27.9 % (36.0-46.0); HEMOGLOBIN 9.1 G/DL (11.9-15.5); MCH 31.8 PG (29.0-34.0); MCHC 32.6 G/DL (30.0-36.0); MCV 97.6 FL (83-99); PLATELET COUNT 178 K/uL (156-360); RBC DIS.WIDTH-CV 12.9 % (11.8-14.6); RBC DIS.WIDTH-SD 46.4 % (39-53); RED BLOOD COUNT 2.86 M/uL (3.80-5.20); WHITE BLOOD COUNT 7.6 K/uL (4.1-10.2)
[2018-04-16 06:13] LABS: ALBUMIN 2.7 G/DL (3.2-4.8); CHLORIDE 113 MEQ/L (99-109); CREATININE 1.5 MG/DL (0.6-1.3); GFR ESTIMATE (CALCULATED) 38 mL/min/; PHOSPHORUS 3.9 mg/dL (2.5-4.9); POTASSIUM 4.2 MEQ/L (3.7-5.4); SODIUM 144 MEQ/L (136-147); UREA NITROGEN (BUN) 41 mg/dL (9-23)
[2018-04-16 06:22] LABS: GLUCOSE 58 mg/dL (70-99)
[2018-04-16 07:31] VITALS: BP 99/52
[2018-04-16 11:32] VITALS: BP 124/60
[2018-04-16] MEDS ORDERED: ELIQUIS5 MG PO (13:46)
[2018-04-16 15:28] VITALS: BP 128/69
[2018-04-16 19:32] VITALS: BP 136/64
[2018-04-17] VITALS (7 sets, daily range): BP systolic 106–134; BP diastolic 54–65
[2018-04-17 07:10] LABS: POTASSIUM 4.4 MEQ/L (3.7-5.4)
[2018-04-17 07:44] LABS: ALBUMIN 3.1 G/DL (3.2-4.8); CHLORIDE 110 MEQ/L (99-109); CREATININE 1.4 MG/DL (0.6-1.3); GFR ESTIMATE (CALCULATED) 41 mL/min/; PHOSPHORUS 3.7 mg/dL (2.5-4.9); SODIUM 145 MEQ/L (136-147); UREA NITROGEN (BUN) 34 mg/dL (9-23)
[2018-04-17 07:45] LABS: GLUCOSE 111 mg/dL (70-99)
[2018-04-17] MEDS ORDERED: CEFDINIR300 MG PO (11:00)
[2018-04-18 06:37] LABS: ALBUMIN 3.2 G/DL (3.2-4.8); CHLORIDE 109 MEQ/L (99-109); CREATININE 1.3 MG/DL (0.6-1.3); GFR ESTIMATE (CALCULATED) 44 mL/min/; GLUCOSE 87 mg/dL (70-99); PHOSPHORUS 4.1 mg/dL (2.5-4.9); POTASSIUM 4.6 MEQ/L (3.7-5.4); SODIUM 147 MEQ/L (136-147); UREA NITROGEN (BUN) 31 mg/dL (9-23)
[2018-04-18 07:01] VITALS: BP 117/54
[2018-04-18 15:05] VITALS: BP 110/67
[2018-04-18 23:56] VITALS: BP 142/72
[2018-04-19 06:31] LABS: ALBUMIN 3.1 G/DL (3.2-4.8); CHLORIDE 105 MEQ/L (99-109); CREATININE 1.2 MG/DL (0.6-1.3); GFR ESTIMATE (CALCULATED) 49 mL/min/; GLUCOSE 89 mg/dL (70-99); POTASSIUM 4.7 MEQ/L (3.7-5.4); SODIUM 143 MEQ/L (136-147); UREA NITROGEN (BUN) 27 mg/dL (9-23)
[2018-04-19 07:19] VITALS: BP 138/75
[2018-04-19] MEDS ORDERED: ELIQUIS5 MG PO (10:43)
[2018-04-19] MEDS ORDERED: CEFDINIR300 MG PO (10:47)
[2018-04-19 15:38] VITALS: BP 126/67
[2018-04-19 21:48] VITALS: BP 112/68
[2018-04-20 06:55] LABS: ALBUMIN 3.4 G/DL (3.2-4.8); CHLORIDE 104 MEQ/L (99-109); CREATININE 1.2 MG/DL (0.6-1.3); GFR ESTIMATE (CALCULATED) 49 mL/min/; PHOSPHORUS 4.3 mg/dL (2.5-4.9); POTASSIUM 4.7 MEQ/L (3.7-5.4); SODIUM 143 MEQ/L (136-147); UREA NITROGEN (BUN) 27 mg/dL (9-23)
[2018-04-20 07:00] LABS: GLUCOSE 113 mg/dL (70-99)
[2018-04-20 07:06] VITALS: BP 133/66
[2018-04-20 15:59] VITALS: BP 117/67
== END 2018-04-20 20:22 | disposition home health service (06) | DRG 682 ==
LOC: EME 10:27 → EDOF 13:11 → 5SOUTH 13:11 → ENRESERV 13:14 → CANRESERV 14:01 → ENRESERV 14:15 → 5SOUTH 14:45
PROVIDERS: Emergency Medicine; Hospitalist; Internal Medicine Nephrology; Nurse Practitioner Adult Health
DX: N17.9 Acute kidney failure, unspecified (principal); E87.5 Hyperkalemia; T46.4X5A Adverse effect of angiotensin-converting-enzyme inhibitors, initial encounter; E86.0 Dehydration; M62.82 Rhabdomyolysis; A41.9 Sepsis, unspecified organism; N39.0 Urinary tract infection, site not specified; B96.20 Unspecified Escherichia coli [E. coli] as the cause of diseases classified elsewhere; M25.511 Pain in right shoulder; M25.512 Pain in left shoulder; W18.30XA Fall on same level, unspecified, initial encounter; Y93.01 Activity, walking, marching and hiking; I82.441 Acute embolism and thrombosis of right tibial vein; I82.412 Acute embolism and thrombosis of left femoral vein; I12.9 Hypertensive chronic kidney disease with stage 1 through stage 4 chronic kidney disease, or unspecified chronic kidney disease; E11.21 Type 2 diabetes mellitus with diabetic nephropathy; E11.22 Type 2 diabetes mellitus with diabetic chronic kidney disease; N18.3 Chronic kidney disease, stage 3 (moderate); F31.9 Bipolar disorder, unspecified; K21.9 Gastro-esophageal reflux disease without esophagitis; E78.5 Hyperlipidemia, unspecified; E03.9 Hypothyroidism, unspecified; F60.3 Borderline personality disorder; J44.9 Chronic obstructive pulmonary disease, unspecified; K59.00 Constipation, unspecified; D64.9 Anemia, unspecified; E66.9 Obesity, unspecified; F17.210 Nicotine dependence, cigarettes, uncomplicated; S82.009D Unspecified fracture of unspecified patella, subsequent encounter for closed fracture with routine healing; Z79.4 Long term (current) use of insulin; Z79.82 Long term (current) use of aspirin; Z68.33 Body mass index [BMI] 33.0-33.9, adult
CPT/HCPCS: 70450; 71045; 73030; 73200; 73564; 76770; 78582; 80048; 80048 91; 80069; 80076; 80178; 81003; 82140; 82550; 82550 91; 82553; 82570; 82948; 83540; 83605; 84156; 84466; 84484; 85027; 85379; 85610; 85730; 87077; 87086; 87186; 93005; 93970; 97530 GO; 97530 GP; 99281; 99283; 99285; A6214; A9567; J0696; J1644; J7030; J7040; J7050; Q0138